=== PATIENT | female | born 1980 | race African-American/Black ===

== ENCOUNTER 2020-08-13 18:29 | Observation (INO) ==
--- NOTE | 2020-08-13 20:30 | DR.GENAD ---
HPI Time Seen Time Seen by Provider: 08/13/20 20:24 PCP Primary Care Physician: edilma HPI Comment HPI Comment: PATIENT IS 40YR OLD FEMALE IN ER WITH JAUDICE AND DARK URINE FOR ONE WEEK WITH ABDOMINAL DISTENSION AND PAIN FOR ONE WEEK. GETTING WORSE. PATIENT WAS TOLD SHE HAD GALL STONE ONE YEAR AGO BUT DID NOT FOLLOW UP FOR IT. SHE HAS SINCE HAD PAIN ON AND OFF AND NOW HAVING DISTENSION WELL. NO FEVER. HAVING NAUSEA BUT NO VOMITING CURRENTLY. NO DYSURIA. Complaint/Symptoms Chief Complaint Doctors Comments: JAUDICE AND URINE IS DARKTIMES ONE WEEK. Chief Complaint:: PT STATES" MY EYES ARE TURNING YELLOW. MY PEE WAS DARK BUT IT'S LIGHTENED UP NOW" COVID-19 Coronavirus risk:travel/contact w/high risk person: No Has patient experienced Coronavirus symptoms: No Nurses notes reviewed Nurses Notes Review: Yes Source History Provided: Patient Mode of Arrival Mode of Arrival: Ambulatory Timing Onset of Chief Complaint: 08/06/20 Came on: Suddenly and Gradually Duration Duration: Constant Duration: Days Severity Severity: Moderate Modifying Factors Worsens:: EXERTION. Improves:: REST. Associated Signs and Symptoms Associated Signs and Symptoms: HISTORY GALL STONE. Other History Other History: DM, HTN. PMH PMH Past Medical History: No Past Surgical History: Yes Surgical History: Family History History of Family Medical Conditions: Yes Family Medical History: Diabetes Mellitus and Hypertension Social History Does patient currently use any type of tobacco product: No Have you used tobacco products in the last 12 months: No Type of Tobacco Use: None Does any household member use tobacco: No Alcohol Use: None Do you use any recreational Drugs:: No Lives With: Family Lives Where: Home Travel Risk Coronavirus risk:travel/contact w/high risk person: No Has patient experienced Coronavirus symptoms: No Infectious screening In the last 2 months have you had wt loss of >10#?: NO Have you had fever, night sweats or hemotysis?: No Have you traveled outside the country in the last 6 months?: No Isolation: Standard ROS Review of Systems Constitutional: See HPI, Weakness, Fatigue and Loss of Appetite; negative Fever Eyes: No Symptoms Reported and See HPI; negative Blurred Vision and Diplopia ENTM: No Symptoms Reported and See HPI; negative Nose Discharge and Nose Congestion Respiratoy: See HPI and Short of Breath; negative Moist Cough and Wheezing Cardiovascular: No Symptoms Reported and See HPI; negative Chest Pain, Edema and Palpitations Gastrointestinal/Abdominal: See HPI, Abdominal Pain and Nausea; negative Di arrhea and Vomiting Genitourinary: No Symptoms Reported and See HPI; negative Dysuria, Frequency and Hematuria Neurological: See HPI and Weakness; negative Headache and Dizziness Musculoskeletal: See HPI and Back Pain Integumentary: See HPI, Change in Color and Juandice; negative Rash Hematologic/Lymphatic: See HPI and Easy Bruising; negative Swollen Glands Endocrine: See HPI and Decreased Appetite; negative Increased Thirst and Inc reased Urine Psychiatric: No Symptoms Reported and See HPI All Other Systems: Reviewed and Negative PE Vital Signs Vitals: Temperature 98.2 F Pulse Rate [Right Brachial] 84 Pulse Rate 84 Respiratory Rate 18 Blood Pressure [Right Arm] 128/78 Blood Pressure [Left Arm] 165/95 Blood Pressure 132/83 O2 Sat by Pulse Oximetry 99 General Limitations: No Limitations General Appearance: Alert and In No Apparent Distress Head Head Exam: Normal Inspection and Atraumatic Eyes Eye exam: PERRL, EOMI and Scleral Icterus; negative Conjunctival Injection ENT ENT Exam: Normal Exam, Normal Oropharynx, Normal External Ear Exam and TM's Normal Bilaterally External Ear Exam: Normal External Inspection; negative Mastoid Tenderness TM/Canal Exam: Bilateral: Normal Nose Exam: Normal Nose Exam Mouth Exam: Normal Inspection; negative Lip Swelling and Tongue Swelling Throat Exam: Normal Inspection; negative Tonsillar Erythema, Tonsillomegaly and Tonsillar Exudate Neck Neck Exam: Normal Inspection and Trachea Midline; negative Tenderness and Lymphadenopathy Chest Chest Inspection: Normal Inspection and Symmetric Chest Wall Rise; negative Tenderness Respiratory Respiratory Exam: Normal Lung Sounds Bilat; negative Accessory Muscle Use, Chest Wall Tenderness and Respiratory Distress Respiratory Exam: Bilateral: Rhonchi and Lower: Rhonchi Cardiovascular Cardiovascular Exam: Regular Rate, Normal Rhythm and Normal Heart Sounds; negative Systolic Murmur and Diastolic Murmur Abdominal Exam Abdominal Exam: Normal Inspection, Normal Bowel Sounds and Soft; negative Tenderness Extremities Extremities Exam: Normal Inspection and Normal Capillary Refill; negative Tenderness and Calf Tenderness Back Back Exam: Normal Inspection; negative (R) CVA Tenderness, (L) CVA Tenderness and Paraspinal Tenderness Neurologic Neurological Exam: Alert, Oriented X3 and CN II-XII Intact; negative Motor Sensory Deficit Psychiatric Psychiatric Exam: Normal Affect and Normal Mood Skin Skin Exam: Warm, Dry, Intact and Other (JAUNDICE.); negative Normal Color MDM Additional Information Additional Information Obtained From: Old Records Differential Diagnosis Differential Diagnosis: JAUNDICE, CHOLECYSTITIS, CHOLELITHIASIS, PACREATITIS, ABDOMINAL DISTENSION. COURSE Treatment Treatment: SEE ORDERS. NS 30CC.HR, PEPCID 20MG IVPB, PROTONIX 40MG IV, ZOFRAN 4MG IV AND MORPHIN 4MG IV IN ER. Reevaluation 1st: Improved (PAIN IMPROVING.) Consultation Consultation Comments: DISCUSSED PATIENT WITH DR. SANTANA. HE SUZANNE ADMIT PATIENT. Education/Counseling Education/Counseling: Patient Educated On: Diagnosis and Needs for Follow Up ROR Labs Reviewed Laboratory Results Reviewed?: Yes Result Diagrams: 08/16/20 05:44 08/16/20 05:44 Laboratory: WBC 3.3 X10^3/uL (3.6-10.0) L 08/13/20 20:40 RBC 4.41 X10^6/uL (3.5-5.4) 08/13/20 20:40 Hgb 12.0 g/dL (12.0-16.0) 08/13/20 20:40 Hct 35.8 % (36.0-47.0) L 08/13/20 20:40 MCV 81.2 fL (80.0-100.0) 08/13/20 20:40 MCH 27.1 pg (27.0-34.0) 08/13/20 20:40 MCHC 33.4 g/dL (33.0-35.0) 08/13/20 20:40 RDW 14.6 % (11.6-16.5) 08/13/20 20:40 Plt Count 180 X10^3/uL (150.0-450.0) 08/13/20 20:40 Plt Count Comment Adequate (ADEQUATE) 08/13/20 20:40 MPV 10.1 fL (7.4-11.0) 08/13/20 20:40 Neut % (Auto) 17.8 % (42.0-75.0) L 08/13/20 20:40 Lymph % (Auto) 76.2 % (21.0-51.0) H 08/13/20 20:40 Gem % (Auto) 4.9 % (0.0-13.0) 08/13/20 20:40 Eos % (Auto) 0.4 % (0.9-2.9) L 08/13/20 20:40 Baso % (Auto) 0.7 % (0.2-1.0) 08/13/20 20:40 Neut # (Auto) 0.6 x10^3/uL (2.2-4.8) L 08/13/20 20:40 Lymph # (Auto) 2.5 X10^3/uL (1.3-2.9) 08/13/20 20:40 Gem # (Auto) 0.2 x10^3/uL (0.3-0.8) L 08/13/20 20:40 Eos # (Auto) 0.0 x10^3/uL (0.0-0.2) 08/13/20 20:40 Baso # (Auto) 0.0 X10^3/uL (0.0-0.1) 08/13/20 20:40 Absolute Nucleated RBC 0.0 /100WBC 08/13/20 20:40 Total Counted 100 08/13/20 20:40 Neutrophils % (Manual) 39 % (39-76) 08/13/20 20:40 Band Neutrophils % 2 % (0-10) 08/13/20 20:40 Lymphocytes % (Manual) 55 % (13-43) H 08/13/20 20:40 Monocytes % (Manual) 4 % (4-9) 08/13/20 20:40 Plt Morphology Comment Normal (NORMAL) 08/13/20 20:40 RBC Morphology Abnormal (NORMAL) A 08/13/20 20:40 Hypochromasia Slight A 08/13/20 20:40 Target Cells Present 08/13/20 20:40 Sodium 136 mmol/L (136-145) 08/13/20 20:40 Corrected Sodium TNP 08/13/20 20:40 Potassium 3.9 mmol/L (3.5-5.1) 08/13/20 20:40 Chloride 99 mmol/L (98-107) 08/13/20 20:40 Carbon Dioxide 27.5 mmol/L (21-32) 08/13/20 20:40 BUN 24 mg/dL (7-18) H 08/13/20 20:40 Creatinine 1.43 mg/dL (0.55-1.02) H 08/13/20 20:40 Est GFR (MDRD) Af Amer 52 (>60) L 08/13/20 20:40 Est GFR (MDRD) Non-Af 43 (>60) L 08/13/20 20:40 Glucose 110 mg/dL (65-99) H 08/13/20 20:40 Calcium 9.0 mg/dL (8.5-10.1) 08/13/20 20:40 Corrected Calcium 9.8 mg/dL (8.5-10.1) 08/13/20 20:40 Total Bilirubin 9.50 mg/dL (0.2-1.0) H 08/13/20 20:40 AST 540 Units/L (15-37) H 08/13/20 20:40 ALT 1068 Units/L (12-78) H 08/13/20 20:40 Alkaline Phosphatase 347 Units/L (46-116) H 08/13/20 20:40 Total Protein 8.5 g/dL (6.4-8.2) H 08/13/20 20:40 Albumin 3.0 g/dL (3.4-5.0) L 08/13/20 20:40 Globulin 5.5 g/dL (2.5-4.5) H 08/13/20 20:40 Albumin/Globulin Ratio 0.5 Ratio (1.1-2.1) L 08/13/20 20:40 Amylase 103 Units/L (25-115) 08/13/20 20:40 Lipase 1116 Units/L (73-393) H 08/13/20 20:40 Specimen Type Clean catch urine 08/13/20 20:39 Urine Color Brown (YELLOW) 08/13/20 20:39 Urine Appearance Clear (CLEAR) 08/13/20 20:39 Urine pH 6.0 (5.0 - 8.0) 08/13/20 20:39 Ur Specific [place] 1.015 (1.000-1.030) 08/13/20 20: Urine Protein 2+ (NEGATIVE) 08/13/20 20:39 Urine Glucose (UA) Negative (NEGATIVE) 08/13/20 20: Urine Ketones Negative (NEGATIVE) 08/13/20: Urine Occult Blood 5+ (NEGATIVE) 08/13/20: Urine Nitrite Negative (NEGATIVE) 11/22/20 20:39 Urine Bilirubin 2+ (NEGATIVE) 08/13/20 20:39 Urine Urobilinogen 2+ (NORMAL) 08/13/20 20:39 Ur Leukocyte Esterase 1+ (NEGATIVE) 08/13/20 20:39 Urine RBC 0-2 /HPF (0-3) 08/13/20 20:39 Urine WBC 0-2 /HPF (0-5) 08/13/20 20:39 Ur Squamous Epith Cells Few /HPF (NEGATIVE) 08/13/20 20:39 Urine Bacteria Trace /HPF (NEGATIVE) 08/13/20 20:39 Ur Culture Indicated? No/not indicated 08/13/20 20:39 SARS-CoV-2 (PCR) Negative (NEGATIVE) 08/14/20 00:23 XRAY XRAY Interpreted by: Radiologist (REPORT NOTED AND DISCUSSED WITH PATIENT.) and Self Opioid Opioid Risk Tool Age (Herbert box if 16-45): Yes History of Preadolescent Sexual Abuse: No Total: 1 Total Score Risk Category: Low Risk Copyright: Eric CORDOVA predicting aberrant behaviors Diagnosis Discharge Problem: Biliary disease with obstruction, Jaundice, Porcelain gallbladder, Hyperbilirubinemia Abdominal pain Qualifiers: Abdominal location: generalized Qualified Code(s): R10.84 - Generalized abdominal pain Cholelithiasis Qualifiers: Cholelithiasis location: gallbladder Cholecystitis presence: without cho lecystitis Biliary obstruction: without biliary obstruction Qualified Code(s): K80.20 - Calculus of gallbladder without cholecystitis without obstruction Instructions Instructions: Cholelithiasis, Xmgg-et-Ebib Abdominal Pain, Adult, Owgl-lp-Ocit Jaundice, Adult, Mdgh-uo-Sogs Managing Your Hypertension Forms: Excuse From Work or School Precautions for COVID19 Patient Portal Social Distancing
[2020-08-13 20:58] LABS: BILIRUBIN,URINE 2+ (NEGATIVE); BLOOD/HEMOGLOBIN,URINE 5+ (NEGATIVE); GLUCOSE, URINE NEGATIVE (NEGATIVE); KETONES,URINE NEGATIVE (NEGATIVE); LEUKOCYTE ESTERASE ,URINE 1+ (NEGATIVE); NITRITES,URINE NEGATIVE (NEGATIVE); PROTEIN,URINE 2+ (NEGATIVE); UROBILINOGEN,URINE 2+ (NORMAL)
[2020-08-13 21:10] LABS: APPEARANCE,URINE CLEAR (CLEAR); BACTERIA,URINE TRACE /HPF (NEGATIVE); COLOR,URINE BROWN (YELLOW); RBC,URINE 0-2 /HPF (0-3); SQUAMOUS EPITHELIAL CELL,UR FEW /HPF (NEGATIVE)
[2020-08-13 21:15] LABS: BASOPHILS % (AUTO) 0.7 % (0.2-1.0); EOSINOPHILS % (AUTO) 0.4 % (0.9-2.9); HEMATOCRIT 35.8 % (36.0-47.0); LYMPHOCYTES # (AUTO) 2.5 X10^3/uL (1.3-2.9); LYMPHOCYTES % (AUTO) 76.2 % (21.0-51.0); MEAN CORPUSCULAR HEMOGLOBIN 27.1 pg (27.0-34.0); MEAN CORPUSCULAR HGB CONC 33.4 g/dL (33.0-35.0); MEAN CORPUSCULAR VOLUME 81.2 fL (80.0-100.0); MEAN PLATELET VOLUME 10.1 fL (7.4-11.0); MONOCYTES # (AUTO) 0.2 x10^3/uL (0.3-0.8); MONOCYTES % (AUTO) 4.9 % (0.0-13.0); NEUTROPHILS # (AUTO) 0.6 x10^3/uL (2.2-4.8); NEUTROPHILS % (AUTO) 17.8 % (42.0-75.0); PLATELET COUNT 180 X10^3/uL (150.0-450.0); RED BLOOD COUNT 4.41 X10^6/uL (3.5-5.4); RED CELL DISTRIBUTION WIDTH 14.6 % (11.6-16.5); WHITE BLOOD COUNT 3.3 X10^3/uL (3.6-10.0)
[2020-08-13 21:21] LABS: ALKALINE PHOSPHATASE 347 Units/L (46-116); ASPARTATE AMINO TRANSFERASE 540 Units/L (15-37); BLOOD UREA NITROGEN 24 mg/dL (7-18); CARBON DIOXIDE 27.5 mmol/L (21-32); CHLORIDE 99 mmol/L (98-107); COR CA(FOR HYPOALB) 9.8 mg/dL (8.5-10.1); CREATININE 1.43 mg/dL (0.55-1.02); SODIUM 136 mmol/L (136-145); TOTAL PROTEIN 8.5 g/dL (6.4-8.2); eGFR NON BLACK RACES 43 (>60)
[2020-08-13 21:37] LABS: BAND NEUTROPHILS % 2 % (0-10); HYPOCHROMASIA SLIGHT; PLATELET MORPHOLOGY COMMENT NORMAL (NORMAL)
[2020-08-13 21:38] LABS: ALANINE AMINOTRANSFERASE 1068 Units/L (12-78); TARGET CELLS PRESENT
--- NOTE | 2020-08-14 00:04 | CT ---
STUDY: CT ABDOMEN AND PELVIS WITH IV CONTRASTCOMPARISON: NoneTECHNIQUE: Axial images were acquired of the abdomen and pelvis with IV contrast. Sagittal and coronal reformatted images were provided. All images were reviewed in a variety of windows and levels.RADIATION REDUCTION TECHNIQUE: Automated exposure control, adjustment of the mA and/or kV according to patient size, or iterative reconstruction techniques were used.HISTORY: ABDOMINAL PAINS, JAUNDICEFINDINGS:LOWER THORAX: The visualized lower lung zones are clear. The heart size is within normal limits. There is no evidence of a pericardial effusion.LIVER: No intrahepatic focal lesions are seen. No evidence of intrahepatic or extrahepatic duct dilation.GALLBLADDER: The gallbladder is contracted and appears hyperdense which may represent gallstones or possible porcelain gallbladder.SPLEEN: The spleen enhances homogenously and is unremarkable.PANCREAS: The pancreas enhances homogenously and is unremarkable.AGRENAL GLANDS: The adrenal glands enhance homogenously and are unremarkable.: The kidneys enhance homogenously. Their collecting system is of normal caliber.Intrauterine contraceptive device is noted. There is a focus of coarse calcification on the left lateral wall of the uterus at the level of the sub serosal surface.URINARY BLADDER: The urinary bladder is unremarkable. There are no soft tissue masses seen in the urinary bladder.VESSELS: The abdominal aorta is normal in size without evidence of aneurysm or dissection. The celiac artery, superior mesenteric artery, [place] renal arteries, and inferior mesenteric artery are patent.GI: The stomach and small bowel is unremarkable. Few scattered diverticula are seen without evidence of diverticulitis. There are no inflammatory changes seen in the right lower quadrant to suggest secondary signs of acute appendicitis. The appendix is normal.LYMPHNODES AND MESSENTERY: There is no evidence of retroperitoneal lymphadenopathy.BONES: The visualized bones demonstrate degenerative changes. There are no concerning lytic or blastic lesions identified.IMPRESSION:1. Hyperdense material is seen in the gallbladder. This could represent gallstones. Please note that the gallbladder is contracted and therefore evaluation ultrasound may be limited at this time. Consider follow-up with ultrasound after and p.o.2. The appendix is normal3. No CT evidence of diverticulitis4. Intrauterine contraceptive device is notedElectronically signed by: Gerardo Pichardo (Aug 14, 2020 00:02:33)
[2020-08-14 00:20] LABS: AMYLASE 103 Units/L (25-115); LIPASE 1116 Units/L (73-393)
[2020-08-14] MEDS ORDERED: MORPHINE SULFATE INJ 2 MG INJ IVP PRN (04:51)
[2020-08-14] MEDS ORDERED: ZOFRAN INJ 4 MG VIAL IVP PRN (04:51)
[2020-08-14] MEDS ORDERED: PEPCID 20 MG IV PREMIX* 20 MG/50 ML BAG IV PRN (04:51)
[2020-08-14] MEDS ORDERED: NS 1000 ML 1,000 ML ONE (04:53)
[2020-08-14] MEDS: NS 1000 ML 1,000 ML IV SCH ×2 (04:55→19:01)
[2020-08-14 06:15] VITALS: BMI 44.6
[2020-08-14 06:40] LABS: BASOPHILS % (AUTO) 0 % (0.2-1.0); EOSINOPHILS % (AUTO) 0.6 % (0.9-2.9); HEMATOCRIT 31.8 % (36.0-47.0); HEMOGLOBIN 10.7 g/dL (12.0-16.0); LYMPHOCYTES # (AUTO) 2.1 X10^3/uL (1.3-2.9); LYMPHOCYTES % (AUTO) 66.5 % (21.0-51.0); MEAN CORPUSCULAR HGB CONC 33.8 g/dL (33.0-35.0); MEAN CORPUSCULAR VOLUME 79.8 fL (80.0-100.0); MEAN PLATELET VOLUME 9.3 fL (7.4-11.0); MONOCYTES # (AUTO) 0.5 x10^3/uL (0.3-0.8); MONOCYTES % (AUTO) 15.5 % (0.0-13.0); NEUTROPHILS # (AUTO) 0.6 x10^3/uL (2.2-4.8); NEUTROPHILS % (AUTO) 17.4 % (42.0-75.0); PLATELET COUNT 165 X10^3/uL (150.0-450.0); RED BLOOD COUNT 3.98 X10^6/uL (3.5-5.4); RED CELL DISTRIBUTION WIDTH 14.5 % (11.6-16.5); WHITE BLOOD COUNT 3.2 X10^3/uL (3.6-10.0)
[2020-08-14 06:57] LABS: ALANINE AMINOTRANSFERASE 798 Units/L (12-78); ALBUMIN 2.5 g/dL (3.4-5.0); ALKALINE PHOSPHATASE 294 Units/L (46-116); ASPARTATE AMINO TRANSFERASE 361 Units/L (15-37); BLOOD UREA NITROGEN 21 mg/dL (7-18); CALCIUM 8.9 mg/dL (8.5-10.1); CARBON DIOXIDE 25.7 mmol/L (21-32); CHLORIDE 104 mmol/L (98-107); COR CA(FOR HYPOALB) 10.1 mg/dL (8.5-10.1); SODIUM 139 mmol/L (136-145); TOTAL PROTEIN 7.1 g/dL (6.4-8.2); eGFR NON BLACK RACES 48 (>60)
[2020-08-14 07:08] LABS: PLATELET MORPHOLOGY COMMENT NORMAL (NORMAL)
--- NOTE | 2020-08-14 07:47 | US ---
HISTORYUpper abdominal painSTUDYGallbladder sonogramTechnique: Multiple grayscale sonographic images were obtained.COMPARISONCT abdomen pelvis same dateFINDINGSThe liver appears normal in size and configuration and without cyst, mass, or biliary ductal dilatation. Limited Doppler evaluation was within normal limits. Gallbladder lumen is not visual however there is a collection of dense echoes in the gallbladder fossa with distal acoustic shadowing suggestive of a disease gallbladder filled with stones. No gallbladder wall thickening is identified. The common duct measured 5.3 mm. The right kidney measured 12 cm in length. No solid masses, hydronephrosis, stones, or perinephric fluid collections were identified. The pancreas was not well visualized.IMPRESSIONCholelithiasis without definite evidence for cholecystitis sonographicallyElectronically signed by: ANEUDY HARRIS (Aug 14, 2020 07:45:15)
[2020-08-14 08:29] LABS: AMYLASE 85 Units/L (25-115); LIPASE 862 Units/L (73-393)
--- NOTE | 2020-08-14 12:06 | DR.H&P ---
H&P - History & Physical for Day of: H&P Date: 08/14/20 - Chief Complaint Chief Complaint: JAUNDICE, ABDOMINAL PAIN, DARK URINE - History of Present Illness History of Present Illness: IS A 40 YEAR OLD BLACK FEMALE. SHE PRESENTED TO THE ER WITH COMPLAINTS OF YELLOW TINT TO EYES AND DARK URINE. SYMPTOMS REPORTEDLY STARTED ABOUT A WEEK AGO. SHE ALSO ADMITS TO INTERMITTENT RUQ ABDOMINAL PAIN AND NAUSEA. PAIN IS WORSE AFTER EATING. HER PAIN IS CURRENTLY RATED A 4/10 AND IS DESCRIBED DULL. ON ARRIVAL TO THE ER, VITALS WERE 97.6-84-18-99%-132/83. LABS WERE OBTAINED. ABNORMAL LAB VALUES INCLUDE THE FOLLOWING: WBC 3.3, HCT 35.8, BUN 24, CREATININE 1.43, GLUCOSE 110, TOTAL BILI 9.50, AST 540, ALT 1068, ALK PHOS 347, TOTAL PROTEIN 8.5, ALBUMIN 3.0, GLOBULIN 5.5, LIPASE 1116. URINALYSIS REVEALED: WBC 0-2, RBC 0-2, BACTERIA TRACE, LEUKOCYTES 1+, BILIRUBIN 2+, OCCULT BLOOD 5+, PROTEIN 2+. COVID-19 NEGATIVE. A HEPATITIS PANEL WAS ORDERED. AN ABD/PELVIS CT WITH CONTRAST WAS ORDERED AND REVEALED: 1. Hyperdense material is seen in the gallbladder. This could represent gallstones. Please note that the gallbladder is contracted and therefore evaluation ultrasound may be limited at this time. 2. The appendix is normal 3. No CT evidence of diverticulitis 4. Intrauterine contraceptive device is noted. A GALLBLADDER US WAS OBTAINED AND REVEALED: Cholelithiasis without definite evidence for cholecystitis sonographically. SHE WAS ADMITTED TO THE HOSPITAL FOR FURTHER EVALUATION AND TREATMENT OF ABDOMINAL PAIN, CHOLELITHIASIS, HYPERBILIRUBINEMIA, AND JAUNDICE. SHE WAS STARTED ON NORMAL SALINE AT 30 ML/HR, ZOFRAN 4MG IV Q6H PRN, MORPHINE 2MG IV Q4H PRN, PROTONIX 40MG IV BID, AND PEPCID 20MG IV BID. WE WILL CONSULT WITH , GENERAL SURGERY. OTHERWISE, WE WILL FOLLOW UP WITH AM LABS AND CONTINUE TO MONITOR. TIME SPENT ON CLINICAL ASSESSMENT, REVIEWING LABS AND IMAGING, DECISION MAKING, AND DOCUMENTATION GREATER THAN 75 MINUTES. - Past Surgical History Surgical History: - Family History Family Medical History: Diabetes Mellitus, Hypertension - Social History Does patient currently use any type of tobacco product: No Have you used tobacco products in the last 12 months: No Type of Tobacco Use: None Does any household member use tobacco: No Alcohol Use: None Drug Use: None - Medications Home Medications: No Known Drug Allergies Allergy (Verified 11/22/18 01:18) - Review of Systems Constitutional: No Symptoms Reported Eyes: See HPI, Other (JAUNDICE ) ENT: No Symptoms Reported Respiratory: No Symptoms Reported Cardiovascular: No Symptoms Reported Gastrointestinal: Nausea, Abdominal Pain Genitourinary: See HPI Musculoskeletal: No Symptoms Reported Skin: No Symptoms Reported Neurological: No Symptoms Reported - Physical Exam Vital Signs: Temperature 98.4 F Pulse Rate [Right Brachial] 78 Pulse Rate 84 Respiratory Rate 20 Blood Pressure [Right Arm] 120/62 Blood Pressure [Left Arm] 165/95 Blood Pressure 132/83 O2 Sat by Pulse Oximetry 96 Oriented: Normal Eyes: Other (JAUNDICE) Ear: Normal Nose: Normal Throat: Normal Respiratory: Diminished Throughout Cardiovascular: Normal : Normal Auscultation: Bowel Sounds: Normal Palpation: Normal Tenderness: RUQ, Mild. negative: Rebound, Guarding, Rigidity Skin: Normal Musculoskeletal: Normal Psychiatric: Normal Mood Description: Calm Affect: Normal Speech Pattern: Clear - Assessment/Plan (1) Abdominal pain Qualifiers: Abdominal location: generalized Qualified Code(s): R10.84 - Generalized abdominal pain Status: Acute Plan: ADMIT, NORMAL SALINE AT 30 ML/HR, ZOFRAN 4MG IV Q6H PRN, MORPHINE 2MG IV Q4H PRN, PROTONIX 40MG IV BID, AND PEPCID 20MG IV BID. CONSULT GENERAL SURGERY (2) Cholelithiasis Qualifiers: Cholelithiasis location: gallbladder Cholecystitis presence: without cholecystitis Biliary obstruction: without biliary obstruction Qualified Code(s): K80.20 - Calculus of gallbladder without cholecystitis without obstruction Status: Acute (3) Hyperbilirubinemia Status: Acute (4) Jaundice Status: Acute - Allergies Allergies/Adverse Reactions: Allergies Allergy/AdvReac Type Severity Reaction Status Date / Time No Known Drug Allergies Allergy Verified 11/22/18 01:18
--- NOTE | 2020-08-14 12:28 | MRI ---
HISTORYBILIARY OBST, JAUNDICE, cholelithiasisSTUDYMRCP, MRI abdomen without IV contrastCOMPARISONUltrasound 08/14/2020TECHNIQUEMRI of the abdomenwithout IV contrast is performed using standard sequences in multiple planes. MRCP protocol is performed with 3D MIP reconstructions.FINDINGSNo biliary ductal dilation. Common bile duct measures approximately 3.5 mm in diameter. Gallbladder is contracted and gallbladder wall is not well evaluated. One or 2 stones are suggested in the gallbladder. No biliary ductal stones are seen. Pancreas appears normal.Liver and spleen appear normal. Adrenal glands are normal in size, as is the abdominal aorta. No renal abnormality is seen. No retroperitoneal lymphadenopathy is seen. No ascites is seen.IMPRESSIONCholelithiasis within a contracted gallbladder. No choledocholithiasis or biliary ductal dilation.Electronically signed by: Juan Hamilton (Aug 14, 2020 12:26:05)
--- NOTE | 2020-08-14 12:54 | RAD ---
HISTORYPRE-OP GBSTUDYCHEST x-ray, PA/LAT ADULTCOMPARISONNoneFINDINGSThe trachea is midline. The cardiac silhouette is unremarkable .Lungs appear clear. No pneumothorax or pleural effusion is seen.No acute bony abnormality is seen. Large anterior and lateral osteophytes are seen in the thoracic spine. There is mild thoracic scoliosis.IMPRESSIONNo acute cardiopulmonary abnormality is seen.Mild thoracic scoliosis is seen with large anterior and lateral osteophytes.Electronically signed by: Juan Hamilton (Aug 14, 2020 12:52:50)
[2020-08-14] MEDS ORDERED: PEPCID 20 MG IV PREMIX* 20 MG/50 ML BAG IV SCH (13:00)
[2020-08-14] MEDS: PROTONIX INJ 40 MG VIAL IVP SCH ×2 (13:42→20:30)
[2020-08-15] MEDS: NS 1000 ML 1,000 ML IV SCH ×5 (03:59→21:17)
[2020-08-15 06:15] LABS: BASOPHILS # (AUTO) 0.1 X10^3/uL (0.0-0.1); BASOPHILS % (AUTO) 3.4 % (0.2-1.0); EOSINOPHILS % (AUTO) 1.1 % (0.9-2.9); HEMATOCRIT 30.1 % (36.0-47.0); HEMOGLOBIN 10.1 g/dL (12.0-16.0); LYMPHOCYTES # (AUTO) 1.5 X10^3/uL (1.3-2.9); LYMPHOCYTES % (AUTO) 43.7 % (21.0-51.0); MEAN CORPUSCULAR HEMOGLOBIN 27.1 pg (27.0-34.0); MEAN CORPUSCULAR HGB CONC 33.7 g/dL (33.0-35.0); MEAN CORPUSCULAR VOLUME 80.5 fL (80.0-100.0); MEAN PLATELET VOLUME 8.9 fL (7.4-11.0); MONOCYTES # (AUTO) 0.5 x10^3/uL (0.3-0.8); MONOCYTES % (AUTO) 13.4 % (0.0-13.0); NEUTROPHILS # (AUTO) 1.3 x10^3/uL (2.2-4.8); NEUTROPHILS % (AUTO) 38.4 % (42.0-75.0); PLATELET COUNT 225 X10^3/uL (150.0-450.0); RED BLOOD COUNT 3.73 X10^6/uL (3.5-5.4); RED CELL DISTRIBUTION WIDTH 14.3 % (11.6-16.5); WHITE BLOOD COUNT 3.5 X10^3/uL (3.6-10.0)
[2020-08-15 06:17] LABS: ALANINE AMINOTRANSFERASE 630 Units/L (12-78); ALBUMIN 2.5 g/dL (3.4-5.0); ALKALINE PHOSPHATASE 285 Units/L (46-116); AMYLASE 85 Units/L (25-115); ASPARTATE AMINO TRANSFERASE 198 Units/L (15-37); BLOOD UREA NITROGEN 12 mg/dL (7-18); CALCIUM 8.7 mg/dL (8.5-10.1); CARBON DIOXIDE 26.8 mmol/L (21-32); CHLORIDE 106 mmol/L (98-107); COR CA(FOR HYPOALB) 9.9 mg/dL (8.5-10.1); CREATININE 1.22 mg/dL (0.55-1.02); LIPASE 778 Units/L (73-393); SODIUM 141 mmol/L (136-145); TOTAL PROTEIN 7.1 g/dL (6.4-8.2); eGFR NON BLACK RACES 51 (>60)
[2020-08-15 06:41] LABS: PLATELET MORPHOLOGY COMMENT NORMAL (NORMAL)
[2020-08-15] MEDS: PEPCID 20 MG IV PREMIX* 20 MG/50 ML BAG IV SCH ×2 (09:12→20:27)
[2020-08-15] MEDS: PROTONIX INJ 40 MG VIAL IVP SCH ×2 (09:12→20:27)
[2020-08-16 06:44] LABS: BASOPHILS % (AUTO) 0.8 % (0.2-1.0); EOSINOPHILS % (AUTO) 0.9 % (0.9-2.9); HEMATOCRIT 29.4 % (36.0-47.0); HEMOGLOBIN 9.8 g/dL (12.0-16.0); LYMPHOCYTES # (AUTO) 1.7 X10^3/uL (1.3-2.9); MEAN CORPUSCULAR HEMOGLOBIN 27.3 pg (27.0-34.0); MEAN CORPUSCULAR HGB CONC 33.5 g/dL (33.0-35.0); MEAN CORPUSCULAR VOLUME 81.4 fL (80.0-100.0); MEAN PLATELET VOLUME 8.9 fL (7.4-11.0); MONOCYTES # (AUTO) 0.5 x10^3/uL (0.3-0.8); MONOCYTES % (AUTO) 14.1 % (0.0-13.0); NEUTROPHILS # (AUTO) 1.2 x10^3/uL (2.2-4.8); NEUTROPHILS % (AUTO) 34.2 % (42.0-75.0); PLATELET COUNT 228 X10^3/uL (150.0-450.0); RED BLOOD COUNT 3.61 X10^6/uL (3.5-5.4); RED CELL DISTRIBUTION WIDTH 14.2 % (11.6-16.5); WHITE BLOOD COUNT 3.4 X10^3/uL (3.6-10.0)
[2020-08-16 06:58] LABS: ALANINE AMINOTRANSFERASE 480 Units/L (12-78); ALBUMIN 2.4 g/dL (3.4-5.0); ALKALINE PHOSPHATASE 255 Units/L (46-116); AMYLASE 89 Units/L (25-115); ASPARTATE AMINO TRANSFERASE 124 Units/L (15-37); BLOOD UREA NITROGEN 10 mg/dL (7-18); CALCIUM 8.6 mg/dL (8.5-10.1); CARBON DIOXIDE 24.4 mmol/L (21-32); CHLORIDE 107 mmol/L (98-107); COR CA(FOR HYPOALB) 9.9 mg/dL (8.5-10.1); CREATININE 0.99 mg/dL (0.55-1.02); LIPASE 642 Units/L (73-393); SODIUM 141 mmol/L (136-145); eGFR NON BLACK RACES > 60 (>60)
[2020-08-16 07:26] LABS: PLATELET MORPHOLOGY COMMENT NORMAL (NORMAL)
[2020-08-16] MEDS: NS 1000 ML 1,000 ML IV SCH (07:47)
[2020-08-16] MEDS: PROTONIX INJ 40 MG VIAL IVP SCH (10:21)
[2020-08-16] MEDS: PEPCID 20 MG IV PREMIX* 20 MG/50 ML BAG IV SCH (10:21)
[2020-08-16 12:11] VITALS: BP 112/72
[2020-08-17 06:53] LABS: HEPATITIS B SURFACE ANTIGEN Negative (Negative)
== END 2020-08-16 12:40 | disposition home or self-care (01) ==
LOC: ER 18:34 → MED/SURG 18:34
PROVIDERS: ADMIT Internal Medicine; ATTEND Internal Medicine
DX: R82.998 Other abnormal findings in urine; Z20.828 Contact with and (suspected) exposure to other viral communicable diseases; K80.20 Calculus of gallbladder without cholecystitis without obstruction; R17 Unspecified jaundice; R10.9 Unspecified abdominal pain